=== PATIENT | male | born 1955 | race African-American/Black ===

== ENCOUNTER → 2020-05-25 | Outpatient (CLI) | payer OTHER ==
[2014-11-19 11:18] VITALS: BP 121/66
[~2020-05-25] MED LIST: AMLO10TA4 PO; ASPI-630 PO; CLON1TAB PO; LORA-254 PO; LOSA25TA PO; METO50TA6 PO
--- NOTE | 2020-05-25 20:08 | RAD ---
EXAM: Chest, 2 views. HISTORY: Shortness of breath. COMPARISON: None. FINDINGS: 2 views of the chest are obtained. There is no infiltrate, pleural effusion or pneumothorax . The heart is normal in size. There is widening of the right paratracheal stripe likely due to tortu ous arch great vessels. IMPRESSION: No acute pulmonary finding. Electronically signed by: Katty Hodges MD (05/25/2020 8:05 PM) [facility]
== END ==
LOC: RAD 13:58
PROVIDERS: ATTEND Family Medicine
DX: R06.02 Shortness of breath (principal)
CPT/HCPCS: 71046